=== PATIENT | male | born 1995 | race African-American/Black ===

== ENCOUNTER 2020-06-22 07:17 | Emergency (ER) | payer OTHER ==
[2020-06-22 07:22] VITALS: BP 137/55; PULSE 85; TEMP 97.9; BMI 25.8
[2020-06-22] MEDS ORDERED: IBUPROFEN 600 MG TABLET (FP) PO ONE ×2 (08:30)
== END 2020-06-22 08:33 | disposition home or self-care (01) ==
LOC: JER 07:17
DX: S93.401A Sprain of unspecified ligament of right ankle, initial encounter (principal); X50.9XXA Other and unspecified overexertion or strenuous movements or postures, initial encounter
CPT/HCPCS: 73610-TC-RT-FY; 99283-25

== ENCOUNTER 2020-09-06 06:17 | Emergency (ER) | payer OTHER ==
[2020-09-06] MEDS ORDERED: ACETAMINOPHEN 325 MG TABLET (FP) PO ONE (06:23)
[2020-09-06 06:29] VITALS: BP 110/75; PULSE 82; TEMP 98.4; BMI 32.7
[2020-09-06] MEDS ORDERED: ACETAMINOPHEN 325 MG TABLET (FP) ONE (06:55)
[2020-09-06] MEDS ORDERED: IBUPROFEN 400 MG TABLET (FP) PO ONE ×2 (07:18→07:29)
== END 2020-09-06 07:33 | disposition home or self-care (01) ==
LOC: JER 06:17
DX: S63.91XA Sprain of unspecified part of right wrist and hand, initial encounter (principal)
CPT/HCPCS: 73110-TC-RT-FY; 73130-TC-RT-FY; 99284-25

== ENCOUNTER 2020-12-18 18:28 | Emergency (ER) | payer OTHER ==
[2020-12-18 18:42] VITALS: PULSE 75; BMI 34.4
[2020-12-18] MEDS ORDERED: IBUPROFEN 400 MG TABLET (FP) PO ONE ×2 (20:12→20:19)
[2020-12-18 22:01] LABS: CALCIUM 9.1 mg/dL (8.5-10.1)
[2020-12-18 22:05] LABS: CREATININE 0.8 mg/dL (0.55-1.3)
[2020-12-18 22:06] LABS: BILIRUBIN,TOTAL 0.4 mg/dL (0.2-1); TOT PROT 7.6 g/dl (6.4-8.2)
[2020-12-18 22:11] LABS: BASO % 0.6 % (0-2.0); HEMATOCRIT 41.7 % (35.4-49); HEMOGLOBIN 14.1 GM/dL (11.7-16.9); LYMPH % 31.1 % (8-40); MCH 28.4 pg (25.7-33.7); MCHC 33.7 g/dl (32.0-35.9); MEAN CELL VOLUME 84.3 fl (80-96); MEAN PLT VOLUME 8.1 fl (7.5-11.1); MONO % 7.6 % (3.8-10.2); NEUT % 56.7 % (42.8-82.8); PLATELET COUNT 274 10^3/uL (134-434); RBC 4.95 M/mm3 (4.00-5.60); RDW 14.5 % (11.9-15.9); WHITE BLOOD COUNT 9.1 K/mm3 (4.0-10.0)
[2020-12-18 22:22] LABS: ALBUMIN 4.2 g/dl (3.4-5.0)
[2020-12-18] MEDS ORDERED: methylPREDNISolone NA SUCC 125 MG/2 ML VIAL IVPUSH ONE (22:26)
[2020-12-18] MEDS ORDERED: methylPREDNISolone NA SUCC 125 MG/2 ML VIAL ONE (22:35)
[2020-12-18 22:57] LABS: BASO % 0.9 % (0-2.0); EOS % 4.1 % (0-4.5); HEMATOCRIT 39.9 % (35.4-49); HEMOGLOBIN 13.7 GM/dL (11.7-16.9); MCH 28.9 pg (25.7-33.7); MCHC 34.4 g/dl (32.0-35.9); MEAN PLT VOLUME 8.3 fl (7.5-11.1); MONO % 6.7 % (3.8-10.2); NEUT % 56.3 % (42.8-82.8); PLATELET COUNT 284 10^3/uL (134-434); RBC 4.75 M/mm3 (4.00-5.60); RDW 14.5 % (11.9-15.9); WHITE BLOOD COUNT 9.4 K/mm3 (4.0-10.0)
[2020-12-18 23:11] LABS: ERYTHROCYTE SEDIMENTATION RATE 7 mm/hr (0-10)
[2020-12-19 01:38] VITALS: BP 112/64; TEMP 97.7
== END 2020-12-19 07:01 | disposition short-term general hospital (02) ==
LOC: JERFT 18:28 → JER 18:28
PROC: 3E033GC Introduction of Other Therapeutic Substance into Peripheral Vein, Percutaneous Approach (ICD-10-PCS; principal; 2020-12-18)
DX: H49.02 Third [oculomotor] nerve palsy, left eye (principal)
CPT/HCPCS: 36415; 70450-TC; 71046-TC-FY; 80053; 85025; 85651; 86140; 99285-25